=== PATIENT | male | born 1985 | race Caucasian/White ===

== ENCOUNTER 2017-08-29 06:28 | Inpatient (IN) | payer OTHER ==
[~2017-08-29] VITALS: Ht 188 cm; Wt 150.0 kg
[2017-08-29 06:29] VITALS: O2SAT 98
[2017-08-29 06:30] VITALS: O2SAT 100
[2017-08-29] MEDS ORDERED: DIPHTH/TETANUS/ACEL PERTUSSIS (BOOSTER) 0.5 ML VIAL/PFS IM ONE (06:33)
[2017-08-29] MEDS ORDERED: ceFAZolin 2 GM PREMIX 50 ML ONE (06:33)
[2017-08-29] MEDS ORDERED: HYDROmorphone HCL PF 2 MG/ML VIAL ONE ×7 (06:44→15:09)
[2017-08-29 07:00] LABS: AUTOMATED NEUTROPHIL # 17.2 TH/MM3 (1.8-7.7); BASOPHIL % 0.2 % (0.0-2.0); EOSINOPHIL # 0.2 TH/MM3 (0-0.4); EOSINOPHIL % 0.8 % (0.0-4.0); HEMATOCRIT 42.6 % (39.0-51.0); HEMOGLOBIN 13.9 GM/DL (13.0-17.0); LYMPH % 11.2 % (9.0-44.0); LYMPHOCYTE # 2.4 TH/MM3 (1.0-4.8); MEAN CELL VOLUME 81.2 FL (80.0-100.0); MEAN CORPUSCULAR HEMOGLOBIN 26.5 PG (27.0-34.0); MEAN CORPUSCULAR HGB CONC 32.6 % (32.0-36.0); MEAN PLATELET VOLUME 8.7 FL (7.0-11.0); MONO % 6.3 % (0.0-8.0); MONOCYTE # 1.3 TH/MM3 (0-0.9); NEUT % 81.5 % (16.0-70.0); PLATELET COUNT 310 TH/MM3 (150-450); RED BLOOD COUNT 5.25 MIL/MM3 (4.50-5.90); RED CELL DISTRIBUTION WIDTH 13.7 % (11.6-17.2); WHITE BLOOD COUNT 21.2 TH/MM3 (4.0-11.0)
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
[2017-08-29 07:10] LABS: PROTHROMBIN TIME - PATIENT 10.6 SEC (9.8-11.6)
[2017-08-29 07:15] VITALS: BP 145/97; PULSE 100; RESP 20; O2SAT 98
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
[2017-08-29] MEDS ORDERED: IOHEXOL 350 MG/ML 10 ML VIAL (for RAD DIAG) IVCONTRAST ONE (07:21)
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
[2017-08-29] MEDS ORDERED: PROPOFOL 200 MG/20 ML AMP IV ONE (07:45)
[2017-08-29] MEDS ORDERED: fentaNYL CITRATE 250 MCG/5 ML AMP IV PUSH ONE (08:00)
[2017-08-29] MEDS ORDERED: NALOXONE HCL 0.4 MG/ML AMP IV PUSH PRN ×2 (08:30→20:15)
[2017-08-29] MEDS ORDERED: ONDANSETRON HCL 4 MG/2 ML VIAL IV PUSH PRN (08:30)
[2017-08-29] MEDS ORDERED: HYDROmorphone HCL PF 1 MG/ML VIAL IV PUSH ONE ×2 (08:30→09:30)
[2017-08-29] MEDS ORDERED: CHLORHEXIDINE GLUCONATE 2 % 1 PACK (2 CLOTHS) TOP PRN (08:30)
[2017-08-29] MEDS ORDERED: HYDROmorphone HCL PCA 6 MG/30 ML IV SCH (08:30)
[2017-08-29] MEDS ORDERED: PCA - TOTAL MG DILAUDID DELIVERED PER SHIFT OTHER SCH (08:30)
[2017-08-29] MEDS ORDERED: MISCELLANEOUS NURSING INFORMATION XX SCH (08:30)
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
[2017-08-29 09:06] VITALS: BP 138/63; PULSE 105; RESP 22; O2SAT 96
[2017-08-29] MEDS: ACETAMINOPHEN 1000 MG/100 ML 100 ML IV SCH ×2 (11:30→20:21)
[2017-08-29] MEDS ORDERED: SODIUM CHLORID 0.9% 500 ML IV PRN (11:45)
[2017-08-29] MEDS ORDERED: LACTATED RINGER'S 1000 ML IV PRN (11:45)
[2017-08-29] MEDS ORDERED: POVIDONE IODINE 5% (ANTISEPSIS KIT) 4 APPLICATIONS EACH NARE PRN (11:45)
[2017-08-29] MEDS ORDERED: METOPROLOL TARTRATE 25 MG TAB PO PRN (11:45)
[2017-08-29] MEDS ORDERED: CHLORHEXIDINE GLUCONATE 2 % 1 PACK (2 CLOTHS) TOPICAL PRN (11:45)
[2017-08-29] MEDS: cefTRIAXone INJ 2,000 MG in SODIUM CHLORIDE 0.9% INJ 100 ML IV SCH ×2 (11:46→20:16)
[2017-08-29] MEDS ORDERED: PHENYLEPH/NS 1000 MCG/10 ML SYR IV ONE (12:00)
[2017-08-29] MEDS ORDERED: SUCCINYLCHOLINE CHLORIDE 100 MG/5 ML SYRINGE IV PUSH ONE (12:00)
[2017-08-29] MEDS ORDERED: GLYCOPYRROLATE 1 MG/5 ML SYRINGE IV PUSH ONE (12:00)
[2017-08-29] MEDS ORDERED: LACTATED RINGER'S 1000 ML INJ 1,000 ML IV ONE (12:00)
[2017-08-29] MEDS ORDERED: ePHEDrine/NS 25 MG/5 ML SYRINGE IV ONE (12:00)
[2017-08-29] MEDS ORDERED: MAGNESIUM SULFATE 1 GM PREMIX 200 ML ONE (12:34)
[2017-08-29] MEDS ORDERED: HYDROmorphone HCL PF 2 MG/ML VIAL IV ONE (12:45)
[2017-08-29] MEDS ORDERED: KETAMINE HCL 500 MG/5 ML VIAL ONE (13:32)
[2017-08-29] MEDS ORDERED: LIDOCAINE HCL 2% 20 ML VIAL ONE (13:33)
[2017-08-29] MEDS ORDERED: HYDROmorphone HCL PF 2 MG/ML VIAL IV PUSH ONE (13:45)
[2017-08-29] MEDS ORDERED: DEXMEDETOMIDINE HCL 200 MCG/2 ML VIAL ONE (13:45)
[2017-08-29] MEDS ORDERED: WHEEMIS3 (13:57)
[2017-08-29] MEDS ORDERED: HYDR-3583 PO (13:57)
[2017-08-29] MEDS ORDERED: WALKER WHEELS/F1 MIS (13:57)
[2017-08-29] MEDS ORDERED: XARE10TA PO (13:57)
[2017-08-29] MEDS ORDERED: MORPHINE SULFATE 2 MG/ML INJ ONE (14:06)
[2017-08-29] MEDS ORDERED: MORPHINE SULFATE 8 MG/ML INJ ONE (14:07)
[2017-08-29] MEDS ORDERED: MORPHINE SULFATE 2 MG/ML INJ IV ONE (14:30)
[2017-08-29] MEDS ORDERED: MORPHINE SULFATE 8 MG/ML INJ IV PUSH ONE (14:30)
[2017-08-29] MEDS: GENTAMICIN SULFATE 80 MG/2 ML VIAL ONE ×4 (15:01→15:10)
[2017-08-29] MEDS ORDERED: ceFAZolin INJ 1,000 MG VIAL ONE (15:04)
[2017-08-29] MEDS ORDERED: fentaNYL CITRATE 250 MCG/5 ML AMP ONE (15:09)
[2017-08-29] MEDS ORDERED: MIDAZOLAM HCL 2 MG/2 ML VIAL ONE (15:12)
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
[2017-08-29] MEDS: LACTATED RINGER'S 1000 ML INJ 1,000 ML IV SCH (16:19)
--- NOTE | 2017-08-29 16:27 | PD.OP ---
cc: Cyrus Wise MD Operative Report Date of Surgery: Aug 29, 2017 Preoperative Diagnosis: Open left tibia fracture, closed left femur fracture Postoperative Diagnosis: Procedure: Irrigation and debridement of open left tibia fracture, intramedullary nail fixation left tibia fracture, reduction and intramedullary nail fixation left femur fracture Anesthesia: Gen. Surgeon: Cyrus Wise Design Release Engineer(s): JAN Walker PA-C The surgical procedure was assisted by my physician virtual office assistant. My P.A. presence was necessary throughout this case for the manipulation and positioning of the surgical extremity. My P.A. was assisting me throughout the duration of this procedure. The skill set of a physician virtual office assistant was medically necessary to complete this procedure. During the surgical case the surgical garment inspector was working at the back table and the physician virtual office assistant was directly assisting me. Operation and Findings: Implants: ITS tibial nail, Synthes retrograde femoral nail Plan of activity: Toe-touch weightbearing Patient was seen and examined preoperatively. An informed consent was obtained from patient after detailed discussion of risk and benefits. Risks of surgery include bleeding, infection, painful hardware, nonunion, malunion, leg length discrepancy, need for hardware removal, and medical complications associated with anesthesia including blood clots, stroke, heart attack, and were discussed. Operative site was marked. Patient was brought to the operating room placed on or table. Patient received IV antibiotics and was given IV sedation GETA. Operative leg was prepped with alcohol Hibiclens and draped in usual sterile fashion. Timeout procedure was performed Procedure began with irrigation and debridement of open fracture. The traumatic laceration was extended proximally and distally. The fracture site was visualized. Overall the wound appeared to be clean. An excisional debridement was performed with scalpel, rongeur, and curettes. The into the bone were cleaned with curettes. At this point the wound was thoroughly irrigated with sterile saline. Next attention was turned towards reduction of fracture.. 2 small incisions were made around the fracture site. A pointed fracture clamp was placed around the fracture. Traction was applied. Fracture was reduced. There was comminution of the fracture. The fracture reduced and excellent alignment was achieved. Fracture clamp was used to aid in reduction. Next a 3 cm incision was made proximal to the patella. Quadriceps tendon was split in line with fibers. Cannulas were placed in the patellofemoral joint to protect the articular surface at all times. A guidepin was placed into the tibia and advanced in the tibial canal. Fluoroscopy was used to confirm appropriate guidepin placement. An opening reamer was used to open the tibial canal. A ball-tipped guidewire was advanced down the tibial canal. Guidepin was passed across the fracture site into the center of the distal tibia. Fluoroscopy confirmed guidepin placement. The nail length was now measured. The fracture was now held in a reduced position and the canal was reamed. The canal was reamed up to appropriate size. The tibial nail was now selected and then attached to the insertion handle. The nail was now placed over the guidepin. Next the nail was fully seated. Using perfect iliamna technique 2 distal interlocking screws were placed. Using the insertion handle as a guide 2 proximal interlocking screws were placed. Fluoroscopy confirmed excellent of fracture with well-placed hardware. Incisions and the knee joint were thoroughly irrigated with sterile saline. Fascia was closed with #1 PDS, subcutaneous tissues closed with 3-0 PDS and skin was closed with 3-0 nylon and ahsan. Next attention was turned towards the left femur. Procedure began with reduction of fracture. Traction was applied. The leg was manipulated to achieve reduction. Excellent reduction was achieved. Fluoroscopy was used to confirm reduction. A two inch incision was made over the anterior knee. A medial arthrotomy was created. Guidepin was placed into the distal femur and advanced into the femoral canal. Fluoroscopy confirmed appropriate guidepin placement. A opening reamer was placed over the guidepin. A long ball tipped guide pin was now placed down the femoral canal into the center of the proximal femur. The nail length was now measured. Fluoroscopy confirmed appropriate guidepin placement. Flexible reamers were now passed over the guidepin to ream the intramedullary canal. The Synthes 12 mm x 375 mm nail was attached to the insertion handle. Nail was now placed over the guidepin into the femoral canal. Fluoroscopy confirmed appropriate nail placement. A small percutaneous incisions were made over the lateral thigh. Cannulas were placed through the insertion handle down to the femur. Using the insertion handle as a guide the distal interlocking screw holes were predrilled and screw lengths were measured. Appropriate length screws was now placed. Next, using perfect iliamna technique two proximal interlocking screws were placed. Screw holes were predrilled and screw lengths were measured. Final fluoroscopy revealed well aligned fracture with well- placed hardware. Incision was closed with 0 Vicryl, 3-0 Vicryl and ahsan. Sterile dressings were applied. Patient was awakened and transferred to recovery room. Cyrus Wise MD Aug 29, 2017 16:27
[2017-08-29] MEDS ORDERED: diphenhydrAMINE HCL 25 MG CAP PO PRN (16:30)
[2017-08-29] MEDS ORDERED: HYDROmorphone HCL PF 2 MG/ML VIAL IV PUSH PRN (16:30)
[2017-08-29] MEDS ORDERED: DO NOT ADM ANY ANTICOAGULANT DRUGS PRN (16:57)
[2017-08-29] MEDS ORDERED: ERGOCALCIFEROL (VIT D2) 50,000 UNIT CAP PO SCH (17:00)
[2017-08-29] MEDS ORDERED: *morphine SULFATE 8 MG/ML PERIprocedure ONLY ONE (17:10)
[2017-08-29] MEDS ORDERED: *LABETALOL HCL 100 MG/20 ML VIAL PERIprocedural Use ONLY ONE (17:17)
--- NOTE | 2017-08-29 17:39 | RADRPT ---
EXAM DATE/TIME: 08/29/2017 15:41 [facility] COMPARISON: No previous studies available for comparison. INDICATIONS : Surgical repair, IM jake placement. MEDICAL HISTORY : None. SURGICAL HISTORY : None. ENCOUNTER: Initial ACUITY: 1 day PAIN SCORE: Non-responsive. LOCATION: Left femur. FINDINGS: There is jake fixation across a comminuted fracture of the tibial shaft. Anatomic alignment. CONCLUSION: 1. Jake fixation of tibial fracture. Niles Prado MD on August 29, 2017 at 17:37 Board Certified Radiologist. This report was verified electronically.
--- NOTE | 2017-08-29 17:39 | RADRPT ---
EXAM DATE/TIME: 08/29/2017 15:41 [facility] COMPARISON: No previous studies available for comparison. INDICATIONS : Surgical repair, IM jake placement. MEDICAL HISTORY : None. SURGICAL HISTORY : None. ENCOUNTER: Initial ACUITY: 1 day PAIN SCORE: Non-responsive. LOCATION: Left femur. FINDINGS: Two view examination of the left femur demonstrates jake fixation of the left femur. Near-anatomic ali gnment. CONCLUSION: 1. Jake fixation left femur. Niles Prado MD on August 29, 2017 at 17:35 Board Certified Radiologist. This report was verified electronically.
[2017-08-29] MEDS: CALCIUM/VITAMIN D 250 MG/125 U TAB PO SCH (18:15)
[2017-08-29] MEDS: ACETAMINOPHEN/HYDROcodone 325 MG/10 MG TAB PO PRN ×2 (18:16→21:50)
[2017-08-29 18:25] VITALS: BP 133/70; PULSE 115; RESP 17; TEMP 97.3; O2SAT 95
[2017-08-29] MEDS: KETOROLAC TROMETHAMINE 30 MG/ML (IVP) VIAL IVP SCH (20:14)
[2017-08-29] MEDS: DOCUSATE SODIUM 50 MG/SENNA 8.6 MG TAB PO SCH (20:22)
[2017-08-29] MEDS: MAGNESIUM HYDROXIDE SUSP 30 ML CUP PO SCH (20:25)
[2017-08-29] MEDS: FAMOTIDINE 20 MG TAB PO SCH (20:25)
[2017-08-29] MEDS: ceFAZolin 2 GM PREMIX 50 ML IV SCH (20:26)
[2017-08-29] MEDS: HYDROmorphone HCL PCA 6 MG/30 ML IV SCH ×2 (20:32→23:26)
[2017-08-29] MEDS: PCA - TOTAL MG DILAUDID DELIVERED PER SHIFT SCH (20:32)
[2017-08-29] MEDS: GENTAMICIN INJ 80 MG in SODIUM CHLORIDE 0.9% INJ 100 ML IV SCH (23:20)
[2017-08-30] VITALS (7 sets, daily range): BP systolic 116–138; BP diastolic 56–71; PULSE 102–121; RESP 17–20; TEMP 97.2–100.5; O2SAT 91–97
[2017-08-30] MEDS: LACTATED RINGER'S 1000 ML INJ 1,000 ML IV SCH ×5 (00:37→22:19)
[2017-08-30] MEDS: ACETAMINOPHEN/HYDROcodone 325 MG/10 MG TAB PO PRN ×3 (01:37→08:57)
[2017-08-30] MEDS: HYDROmorphone HCL PCA 6 MG/30 ML IV SCH ×2 (02:22→07:27)
[2017-08-30] MEDS: ceFAZolin 2 GM PREMIX 50 ML IV SCH (04:45)
[2017-08-30] MEDS: KETOROLAC TROMETHAMINE 30 MG/ML (IVP) VIAL IVP SCH ×2 (04:46→14:51)
[2017-08-30] MEDS: CHLORHEXIDINE GLUCONATE 2 % 1 PACK (2 CLOTHS) TOP SCH (04:57)
[2017-08-30] MEDS: ACETAMINOPHEN 1000 MG/100 ML 100 ML IV SCH (05:04)
[2017-08-30] MEDS: PCA - TOTAL MG DILAUDID DELIVERED PER SHIFT SCH ×3 (06:21→21:29)
[2017-08-30 06:55] LABS: AUTOMATED NEUTROPHIL # 4.9 TH/MM3 (1.8-7.7); BASOPHIL % 0.6 % (0.0-2.0); EOSINOPHIL # 0.2 TH/MM3 (0-0.4); EOSINOPHIL % 2.7 % (0.0-4.0); HEMATOCRIT 27.6 % (39.0-51.0); HEMOGLOBIN 9.3 GM/DL (13.0-17.0); LYMPH % 16.1 % (9.0-44.0); LYMPHOCYTE # 1.1 TH/MM3 (1.0-4.8); MEAN CELL VOLUME 81.2 FL (80.0-100.0); MEAN CORPUSCULAR HEMOGLOBIN 27.4 PG (27.0-34.0); MEAN CORPUSCULAR HGB CONC 33.7 % (32.0-36.0); MEAN PLATELET VOLUME 8.8 FL (7.0-11.0); MONO % 6.9 % (0.0-8.0); MONOCYTE # 0.5 TH/MM3 (0-0.9); NEUT % 73.7 % (16.0-70.0); PLATELET COUNT 117 TH/MM3 (150-450); RED CELL DISTRIBUTION WIDTH 14.1 % (11.6-17.2); WHITE BLOOD COUNT 6.6 TH/MM3 (4.0-11.0)
[2017-08-30 07:17] LABS: CALCIUM 7.3 MG/DL (8.5-10.1); CREATININE 1.39 MG/DL (0.60-1.30)
[2017-08-30 07:32] LABS: CALCIUM-PROTEIN CORRECTED 8.2 MG/DL (8.5-10.1); TOTAL PROTEIN 5.5 GM/DL (6.4-8.2)
[2017-08-30] MEDS: GENTAMICIN INJ 80 MG in SODIUM CHLORIDE 0.9% INJ 100 ML IV SCH ×3 (08:00→23:24)
[2017-08-30] MEDS ORDERED: MS C30TA5 (08:56)
[2017-08-30] MEDS ORDERED: OXYC30TA PO (08:56)
[2017-08-30] MEDS: MAGNESIUM HYDROXIDE SUSP 30 ML CUP PO SCH ×2 (08:58→21:17)
[2017-08-30] MEDS: FAMOTIDINE 20 MG TAB PO SCH ×2 (08:58→21:00)
[2017-08-30] MEDS: CALCIUM/VITAMIN D 250 MG/125 U TAB PO SCH ×3 (08:58→17:04)
[2017-08-30] MEDS: DOCUSATE SODIUM 50 MG/SENNA 8.6 MG TAB PO SCH ×4 (08:58→21:00)
--- NOTE | 2017-08-30 09:05 | PD.ORT.PN ---
Subjective Subjective Remarks pt complains of left leg pain servin had to be inserted last evening Objective Vitals Vital Signs Date Time Temp Pulse Resp B/P (MAP) Pulse Ox O2 Delivery O2 Flow Rate FiO2 08/30/17 07:27 16 08/30/17 06:21 17 08/30/17 05:35 93 Nasal Cannula 08/30/17 03:55 99.0 118 18 124/64 (84) 93 08/30/17 02:22 17 08/30/17 00:00 100.5 121 17 138/71 (93) 93 08/29/17 23:26 16 08/29/17 20:32 16 08/29/17 20:32 16 08/29/17 18:25 97.3 115 17 133/70 (91) 95 08/29/17 18:12 12 08/29/17 17:45 114 19 119/77 (91) 94 Nasal Cannula 4 08/29/17 17:30 114 20 112/62 (79) 86 Venturi Mask 6 40 08/29/17 17:15 128 30 118/54 (75) 86 Venturi Mask 6 40 08/29/17 17:00 127 25 177/56 (96) 92 Nasal Cannula 4 08/29/17 16:57 99.7 127 25 133/82 (99) 94 Simple Mask 8 08/29/17 10:33 25 08/29/17 10:33 25 08/29/17 09:06 105 22 138/63 (88) 96 Nasal Cannula 2.00 I/O 08/29/17 08/29/17 08/29/17 08/30/17 08/30/17 08/30/17 07:00 15:00 23:00 07:00 15:00 23:00 Intake Total 1800 ml 1772 ml Output Total 75 ml 1050 ml Balance 1725 ml 722 ml Intake Oral 640 ml IV Total 150 ml 1132 ml Other 1650 ml Output Urine Total 1050 ml Estimated Blood Loss 75 ml # Bowel Movements 0 Result Diagram: 08/30/17 0536 08/30/17 0536 Objective Remarks pt is in room with mother seen and evaluated by Dr. Bright Morley left lower extremity, sensation intact splint in place Assessment & Plan Assessment and Plan POD # 1 s/p I&D open L tibia, IM tibia, IM nail femur TTWB leave servin in place until late tomorrow (08/31) or early friday TTWB Lovenox DVT prop Consult hospitalist Britt Leung Aug 30, 2017 09:05
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
[2017-08-30] MEDS ORDERED: cloNIDine HCL 0.1 MG TAB PO PRN (10:45)
[2017-08-30] MEDS: MORPHINE SULFATE 30 MG CONTROLLED RELEASE TAB PO SCH ×2 (10:45→21:20)
[2017-08-30] MEDS: ENOXAPARIN SODIUM 40 MG/0.4 ML SYRINGE SQ SCH (17:04)
[2017-08-31] VITALS (8 sets, daily range): BP systolic 110–147; BP diastolic 55–85; PULSE 100–124; RESP 19–23; TEMP 96.7–100.2; O2SAT 70–93
[2017-08-31] MEDS: LACTATED RINGER'S 1000 ML INJ 1,000 ML IV SCH ×3 (00:26→18:19)
[2017-08-31] MEDS: CHLORHEXIDINE GLUCONATE 2 % 1 PACK (2 CLOTHS) TOP SCH (02:00)
[2017-08-31] MEDS: ENOXAPARIN SODIUM 40 MG/0.4 ML SYRINGE SQ SCH ×2 (04:00→16:00)
[2017-08-31] MEDS: PCA - TOTAL MG DILAUDID DELIVERED PER SHIFT SCH ×3 (04:17→22:00)
[2017-08-31 07:31] LABS: ALBUMIN 2.6 GM/DL (3.4-5.0); AST (GOT) 54 U/L (15-37); BICARBONATE 26.9 MEQ/L (21.0-32.0); BLOOD UREA NITROGEN 15 MG/DL (7-18); CHLORIDE 102 MEQ/L (98-107); CREATININE 1.12 MG/DL (0.60-1.30); GLOMERULAR FILTRATION RATE 77 ML/MIN (>89); GLUCOSE,RANDOM 133 MG/DL (74-106); MAGNESIUM 2.3 MG/DL (1.5-2.5); SODIUM (NA) 138 MEQ/L (136-145)
[2017-08-31 07:33] LABS: ALT (GPT) 18 U/L (12-78); PHOSPHORUS 2.2 MG/DL (2.5-4.9)
[2017-08-31 07:36] LABS: AUTOMATED NEUTROPHIL # 4.3 TH/MM3 (1.8-7.7); BASOPHIL # 0.1 TH/MM3 (0-0.2); BASOPHIL % 0.8 % (0.0-2.0); EOSINOPHIL # 0.4 TH/MM3 (0-0.4); EOSINOPHIL % 6.5 % (0.0-4.0); HEMOGLOBIN 8.2 GM/DL (13.0-17.0); LYMPH % 15.5 % (9.0-44.0); LYMPHOCYTE # 0.9 TH/MM3 (1.0-4.8); MEAN CELL VOLUME 80.7 FL (80.0-100.0); MEAN CORPUSCULAR HEMOGLOBIN 27.4 PG (27.0-34.0); MEAN PLATELET VOLUME 9.2 FL (7.0-11.0); MONO % 5.9 % (0.0-8.0); MONOCYTE # 0.4 TH/MM3 (0-0.9); NEUT % 71.3 % (16.0-70.0); PLATELET COUNT 87 TH/MM3 (150-450); RED BLOOD COUNT 2.98 MIL/MM3 (4.50-5.90); RED CELL DISTRIBUTION WIDTH 13.6 % (11.6-17.2); WHITE BLOOD COUNT 6.1 TH/MM3 (4.0-11.0)
[2017-08-31 07:41] LABS: ALKALINE PHOSPHATASE 65 U/L (45-117); FREE T4 1.48 NG/DL (0.76-1.46); TOTAL BILIRUBIN ADULT 0.6 MG/DL (0.2-1.0)
--- NOTE | 2017-08-31 08:28 | PD.ORT.PN ---
Subjective Subjective Remarks pt states he is very painful, was on chronic pain meds pre-op Objective Vitals Vital Signs Date Time Temp Pulse Resp B/P (MAP) Pulse Ox O2 Delivery O2 Flow Rate FiO2 08/31/17 06:32 19 08/31/17 04:10 96.8 123 22 110/55 (73) 91 08/31/17 00:15 99.4 124 21 118/61 (80) 91 08/30/17 22:25 Nasal Cannula 4.00 Humidified 08/30/17 22:20 17 08/30/17 20:05 100.3 120 20 134/61 (85) 97 08/30/17 16:00 97.2 115 17 118/56 (76) 95 08/30/17 12:00 97.7 102 17 116/56 (76) 91 I/O 08/30/17 08/30/17 08/30/17 08/31/17 08/31/17 08/31/17 07:00 15:00 23:00 07:00 15:00 23:00 Intake Total 1772 ml 480 ml 1100 ml 442 ml Output Total 1050 ml 450 ml 2050 ml Balance 722 ml 30 ml 1100 ml -1608 ml Intake Oral 640 ml 480 ml 240 ml IV Total 1132 ml 1100 ml 202 ml Output Urine Total 1050 ml 450 ml 2050 ml # Bowel Movements 0 0 0 Result Diagram: 08/31/17 0645 08/31/17 0645 Objective Remarks also seen and evaluated by Dr. Bright Morley left lower extremity, sensation intact splint in place Assessment & Plan Assessment and Plan POD # 2 s/p I&D open L tibia, IM tibia, IM nail femur TTWB leave servin in place until late today (08/31) or early friday TTWB Lovenox DVT prop hospitalist was consulted 08/30 due to pain control issues Britt Leung Aug 31, 2017 08:28
[2017-08-31] MEDS: DOCUSATE SODIUM 50 MG/SENNA 8.6 MG TAB PO SCH ×3 (09:00→22:18)
[2017-08-31] MEDS: CALCIUM/VITAMIN D 250 MG/125 U TAB PO SCH ×3 (09:37→17:30)
[2017-08-31] MEDS: GENTAMICIN INJ 80 MG in SODIUM CHLORIDE 0.9% INJ 100 ML IV SCH ×2 (09:37→16:00)
[2017-08-31] MEDS: MORPHINE SULFATE 30 MG CONTROLLED RELEASE TAB PO SCH ×2 (09:37→22:17)
[2017-08-31] MEDS: MAGNESIUM HYDROXIDE SUSP 30 ML CUP PO SCH ×2 (09:37→22:17)
[2017-08-31] MEDS: FAMOTIDINE 20 MG TAB PO SCH ×2 (09:37→22:17)
[2017-08-31 10:00] LABS: HEMOGLOBIN A1C 5.7 % (4.3-6.0)
[2017-08-31] MEDS ORDERED: BACITRACIN OINT 0.9 GM PKT TOP PRN (11:30)
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
[2017-08-31] MEDS ORDERED: IOHEXOL 350 MG/ML 10 ML VIAL (for RAD DIAG) IVCONTRAST ONE (12:37)
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
[2017-09-01] VITALS (8 sets, daily range): BP systolic 122–150; BP diastolic 58–84; PULSE 71–118; RESP 18–21; TEMP 97.4–100.1; O2SAT 90–100
[2017-09-01] MEDS: CHLORHEXIDINE GLUCONATE 2 % 1 PACK (2 CLOTHS) TOP SCH (04:00)
[2017-09-01] MEDS: LACTATED RINGER'S 1000 ML INJ 1,000 ML IV SCH ×2 (04:12→14:19)
[2017-09-01] MEDS: ENOXAPARIN SODIUM 40 MG/0.4 ML SYRINGE SQ SCH ×2 (05:00→17:28)
[2017-09-01] MEDS: PCA - TOTAL MG DILAUDID DELIVERED PER SHIFT SCH ×3 (06:00→20:49)
--- NOTE | 2017-09-01 06:39 | PD.ORT.PN ---
Subjective Subjective Remarks Pain is controlled but is complaining of pain in his right knee this morning. Objective Vitals Vital Signs Date Time Temp Pulse Resp B/P (MAP) Pulse Ox O2 Delivery O2 Flow Rate FiO2 09/01/17 04:30 97.4 112 21 134/81 (98) 93 09/01/17 00:20 99.7 118 20 122/58 (79) 93 08/31/17 23:31 18 08/31/17 20:00 96.7 119 19 130/71 (90) 92 08/31/17 19:35 19 08/31/17 17:32 92 Nasal Cannula 5.00 08/31/17 16:00 97.2 123 22 147/85 (105) 81 08/31/17 12:00 100.2 117 23 137/68 (91) 92 08/31/17 09:38 93 Nasal Cannula 5.00 08/31/17 08:00 97.9 100 23 138/63 (88) 70 I/O 08/31/17 08/31/17 08/31/17 09/01/17 09/01/17 09/01/17 07:00 15:00 23:00 07:00 15:00 23:00 Intake Total 442 ml 720 ml 240 ml Output Total 2050 ml 2600 ml 1250 ml Balance -1608 ml -1880 ml -1010 ml Intake Oral 240 ml 720 ml 240 ml IV Total 202 ml Output Urine Total 2050 ml 2600 ml 1250 ml # Bowel Movements 0 0 Result Diagram: 08/31/17 0645 08/31/17 0645 Objective Remarks Left lower extremity: Clean dry dressings intact. Both upper and lower compartments are semi-soft. Distally intact sensation with good capillary refills. Active dorsal flexion plantar flexion of foot. Intact distal pulses and capillary refills Assessment & Plan Assessment and Plan POD # 3 s/p I&D open L tibia, IM tibia, IM nail femur TTWB X-rays today of right knee for evaluation of pain Lovenox DVT prop Daily dressing changes If x-rays are negative of right knee injury and is doing well with physical therapy will plan on discharged today or tomorrow depending on patient's safety follow-up with Dr. Wise or MELVI in 2 weeks Jay Wen Jr. Sep 01, 2017 06:39
[2017-09-01] MEDS: DOCUSATE SODIUM 50 MG/SENNA 8.6 MG TAB PO SCH ×2 (08:43→20:52)
[2017-09-01] MEDS: CALCIUM/VITAMIN D 250 MG/125 U TAB PO SCH ×3 (08:43→17:28)
[2017-09-01] MEDS: MAGNESIUM HYDROXIDE SUSP 30 ML CUP PO SCH ×2 (08:44→20:52)
[2017-09-01] MEDS: MORPHINE SULFATE 30 MG CONTROLLED RELEASE TAB PO SCH ×2 (08:44→20:53)
[2017-09-01] MEDS: FAMOTIDINE 20 MG TAB PO SCH ×2 (08:44→20:52)
--- NOTE | 2017-09-01 10:09 | RADRPT ---
EXAM DATE/TIME: 09/01/2017 09:42 [facility] COMPARISON: No previous studies available for comparison. INDICATIONS : Right knee pain, fell. MEDICAL HISTORY : left femur fx SURGICAL HISTORY : Neuro hx ENCOUNTER: Initial ACUITY: 3 days PAIN SCORE: 10/10 LOCATION: Right knee FINDINGS: Four view examination of the right knee demonstrates no evidence of fracture or dislocation. Bony mi neralization is normal. The articular surfaces are intact. The suprapatellar soft tissues have a no rmal configuration. CONCLUSION: 1. No acute fracture or dislocation. Obinna Villaseñor MD on September 01, 2017 at 9:58 Board Certified Radiologist. This report was verified electronically.
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
[2017-09-01 16:24] LABS: AUTOMATED NEUTROPHIL # 5.9 TH/MM3 (1.8-7.7); BASOPHIL # 0.1 TH/MM3 (0-0.2); BASOPHIL % 0.9 % (0.0-2.0); EOSINOPHIL # 0.5 TH/MM3 (0-0.4); EOSINOPHIL % 5.7 % (0.0-4.0); HEMATOCRIT 25.4 % (39.0-51.0); HEMOGLOBIN 8.4 GM/DL (13.0-17.0); LYMPH % 14.6 % (9.0-44.0); LYMPHOCYTE # 1.2 TH/MM3 (1.0-4.8); MEAN CELL VOLUME 80.9 FL (80.0-100.0); MEAN CORPUSCULAR HEMOGLOBIN 26.9 PG (27.0-34.0); MEAN CORPUSCULAR HGB CONC 33.3 % (32.0-36.0); MEAN PLATELET VOLUME 9.1 FL (7.0-11.0); MONO % 7.5 % (0.0-8.0); MONOCYTE # 0.6 TH/MM3 (0-0.9); NEUT % 71.3 % (16.0-70.0); PLATELET COUNT 154 TH/MM3 (150-450); RED BLOOD COUNT 3.14 MIL/MM3 (4.50-5.90); RED CELL DISTRIBUTION WIDTH 14.4 % (11.6-17.2); WHITE BLOOD COUNT 8.3 TH/MM3 (4.0-11.0)
[2017-09-01 16:54] LABS: ALBUMIN 2.8 GM/DL (3.4-5.0); AST (GOT) 43 U/L (15-37); BICARBONATE 28.9 MEQ/L (21.0-32.0); BLOOD UREA NITROGEN 12 MG/DL (7-18); CALCIUM 8.4 MG/DL (8.5-10.1); CHLORIDE 101 MEQ/L (98-107); CREATININE 0.99 MG/DL (0.60-1.30); GLOMERULAR FILTRATION RATE 89 ML/MIN (>89); GLUCOSE,RANDOM 125 MG/DL (74-106); MAGNESIUM 2.4 MG/DL (1.5-2.5); SODIUM (NA) 137 MEQ/L (136-145)
[2017-09-01 16:58] LABS: ALKALINE PHOSPHATASE 64 U/L (45-117); ALT (GPT) 16 U/L (12-78); PHOSPHORUS 2.3 MG/DL (2.5-4.9); TOTAL BILIRUBIN ADULT 0.8 MG/DL (0.2-1.0); TOTAL PROTEIN 7.3 GM/DL (6.4-8.2)
[2017-09-01] MEDS: LEVOFLOXACIN 750 MG TAB PO SCH (17:34)
[2017-09-02] VITALS (10 sets, daily range): BP systolic 127–159; BP diastolic 63–89; PULSE 96–107; RESP 18–20; TEMP 96.8–100.1; O2SAT 93–99
[2017-09-02] MEDS: LACTATED RINGER'S 1000 ML INJ 1,000 ML IV SCH ×3 (00:19→20:19)
[2017-09-02] MEDS: CHLORHEXIDINE GLUCONATE 2 % 1 PACK (2 CLOTHS) TOP SCH (03:28)
[2017-09-02] MEDS: ENOXAPARIN SODIUM 40 MG/0.4 ML SYRINGE SQ SCH ×2 (03:55→16:42)
[2017-09-02] MEDS: PCA - TOTAL MG DILAUDID DELIVERED PER SHIFT SCH ×3 (05:23→21:58)
[2017-09-02 06:11] LABS: MEAN CELL VOLUME 81.3 FL (80.0-100.0); MEAN CORPUSCULAR HEMOGLOBIN 27.1 PG (27.0-34.0); MEAN CORPUSCULAR HGB CONC 33.3 % (32.0-36.0); MEAN PLATELET VOLUME 9.3 FL (7.0-11.0); PLATELET COUNT 147 TH/MM3 (150-450); RED BLOOD COUNT 2.57 MIL/MM3 (4.50-5.90)
[2017-09-02 06:20] LABS: BICARBONATE 26.5 MEQ/L (21.0-32.0); CALCIUM 8.4 MG/DL (8.5-10.1); CREATININE 0.85 MG/DL (0.60-1.30)
[2017-09-02 06:22] LABS: HEMATOCRIT 20.9 % (39.0-51.0)
--- NOTE | 2017-09-02 06:42 | PD.ORT.PN ---
Subjective Subjective Remarks Continue to have some difficulty with pain control due to chronic pain medication use. He was able to get on a walker make to the bathroom back yesterday. Pain in the right knee is continuing to improve. He continues to have some tenderness and pain with the right shoulder due to his acromial clavicular joint separation. Objective Vitals Vital Signs Date Time Temp Pulse Resp B/P (MAP) Pulse Ox O2 Delivery O2 Flow Rate FiO2 09/02/17 04:26 18 09/02/17 00:12 99.0 107 20 127/63 (84) 96 09/01/17 23:00 Nasal Cannula 4.00 Humidified 09/01/17 21:33 18 09/01/17 19:45 98.8 107 18 133/77 (95) 98 09/01/17 19:29 95 Nasal Cannula 4.00 09/01/17 16:00 99.0 110 18 133/84 (100) 100 09/01/17 11:48 97.4 100 18 141/79 (99) 99 09/01/17 08:12 94 Nasal Cannula 4.00 09/01/17 07:23 100.1 71 18 150/77 (101) 90 I/O 09/01/17 09/01/17 09/01/17 09/02/17 09/02/17 09/02/17 07:00 15:00 23:00 07:00 15:00 23:00 Intake Total 240 ml 720 ml Output Total 1250 ml 1400 ml Balance -1010 ml -680 ml Intake Oral 240 ml 720 ml Output Urine Total 1250 ml 1400 ml # Bowel Movements 0 0 Result Diagram: 09/02/17 0430 09/02/17 0430 Imaging Last 72 hours Impressions Knee X-Ray 09/01/17 0000 Signed Impressions: Service Date/Time: Friday, September 01, 2017 09:42 - CONCLUSION: 1. No acute fracture or dislocation. Obinna Villaseñor MD Lower Extremity Ultrasound 08/31/17 0000 Signed Impressions: Service Date/Time: Thursday, August 31, 2017 18:29 - CONCLUSION: Normal examination. Niles Prado MD CT Angiography 08/31/17 0000 Signed Impressions: Service Date/Time: Thursday, August 31, 2017 12:25 - CONCLUSION: 1. No pulmonary embolus identified. 2. Patchy airspace infiltrate bilaterally concerning for a pneumonia. Joel Davis MD Objective Remarks Left lower extremity: Clean dry dressings intact. Both upper and lower compartments are semi-soft. Distally intact sensation with good capillary refills. Active dorsal flexion plantar flexion of foot. Intact distal pulses and capillary refills Right upper extremity: Pain to palpation over chronic clavicular joint. He is able to fully left his arm to 160 or flexion and abduction. Distally intact sensation with full extension and flexion of all fingers Right lower extremity: No pain with hip range of motion. Continues to have some slight tenderness to his knee with range of motion. Distally intact sensation with good capillary refills. Active dorsiflexion and plantar flexion foot Assessment & Plan Assessment and Plan POD # 4 s/p I&D open L tibia, IM tibia, IM nail femur TTWB left lower extremity Lovenox DVT prop Daily dressing changes Right acromioclavicular joint separation Weightbearing as tolerated right upper extremity for short distances with walker Discharge to home if doing well with physical therapy Jay Wen Jr. Sep 02, 2017 06:42
--- NOTE | 2017-09-02 07:32 | RADRPT ---
EXAM DATE/TIME: 09/02/2017 05:17 [facility] COMPARISON: CHEST SINGLE AP, August 29, 2017, 6:35. INDICATIONS : Chest and back pain , evaluate for pneumonia MEDICAL HISTORY : None. SURGICAL HISTORY : fusion lower c-spine, t-spine fixation ENCOUNTER: Subsequent ACUITY: 4 - 6 days PAIN SCORE: 10/10 LOCATION: Bilateral chest FINDINGS: Scattered patchy infiltrates are noted bilaterally consistent with pneumonia or pulmonary vascular co ngestion. Clinical correlation is recommended. The heart is stable. Hardware is noted within the cerv ical spine and thoracolumbar spine consistent with previous fusions. CONCLUSION: Scattered patchy infiltrates bilaterally consistent with pneumonia or pulmonary vascular congestion. Clinical correlation is recommended. Marcin Ronquillo MD on September 02, 2017 at 7:29 Board Certified Radiologist. This report was verified electronically.
[2017-09-02] MEDS: MAGNESIUM HYDROXIDE SUSP 30 ML CUP PO SCH ×2 (10:10→21:54)
[2017-09-02] MEDS: FAMOTIDINE 20 MG TAB PO SCH ×2 (10:10→21:55)
[2017-09-02] MEDS: DOCUSATE SODIUM 50 MG/SENNA 8.6 MG TAB PO SCH ×2 (10:10→21:55)
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
[2017-09-02] MEDS: MORPHINE SULFATE 30 MG CONTROLLED RELEASE TAB PO SCH ×2 (10:11→21:55)
[2017-09-02] MEDS: LEVOFLOXACIN 750 MG TAB PO SCH (10:11)
[2017-09-02] MEDS: CALCIUM/VITAMIN D 250 MG/125 U TAB PO SCH ×3 (10:11→16:42)
[2017-09-02] MEDS ORDERED: RESP: ALBUTEROL 2.5 MG/IPRATROPIUM 0.5 MG NEB (PRN) NEB (10:45)
[2017-09-02] MEDS: RESP: ALBUTEROL 2.5 MG/IPRATROPIUM 0.5 MG NEB (SCH) NEB ×2 (14:15→19:01)
[2017-09-02 22:12] LABS: HEMATOCRIT 26.6 % (39.0-51.0); HEMOGLOBIN 8.8 GM/DL (13.0-17.0)
[2017-09-03] MEDS: CHLORHEXIDINE GLUCONATE 2 % 1 PACK (2 CLOTHS) TOP SCH (00:14)
[2017-09-03 00:30] VITALS: BP 122/77; PULSE 104; RESP 20; TEMP 99; O2SAT 93
[2017-09-03] MEDS: PCA - TOTAL MG DILAUDID DELIVERED PER SHIFT SCH (01:53)
[2017-09-03] MEDS: ENOXAPARIN SODIUM 40 MG/0.4 ML SYRINGE SQ SCH ×2 (03:47→14:53)
[2017-09-03] MEDS: LACTATED RINGER'S 1000 ML INJ 1,000 ML IV SCH (06:11)
--- NOTE | 2017-09-03 06:25 | PD.ORT.PN ---
Subjective Subjective Remarks Continue to have some difficulty with pain control due to chronic pain medication use. . Objective Vitals Vital Signs Date Time Temp Pulse Resp B/P (MAP) Pulse Ox O2 Delivery O2 Flow Rate FiO2 09/03/17 01:53 19 09/03/17 00:30 99.0 104 20 122/77 (92) 93 09/02/17 22:34 18 09/02/17 19:53 100.1 107 20 143/79 96 09/02/17 19:01 98 21 09/02/17 16:51 98.2 100 18 128/74 99 09/02/17 16:32 97.2 101 18 152/83 95 09/02/17 15:00 97.0 105 20 159/74 93 09/02/17 14:18 94 Nasal Cannula 4.00 09/02/17 12:36 96.8 96 18 149/89 97 09/02/17 12:12 98.0 103 18 143/81 97 09/02/17 07:45 98.5 100 18 134/74 (94) 94 I/O 09/02/17 09/02/17 09/02/17 09/03/17 09/03/17 09/03/17 07:00 15:00 23:00 07:00 15:00 23:00 Intake Total 960 ml 1715 ml 415 ml 960 ml Output Total 1500 ml 1300 ml 1700 ml Balance -540 ml 415 ml 415 ml -740 ml Intake Oral 960 ml 960 ml 960 ml Packed Cells 750 ml 400 ml Blood Product IV Normal Saline Flush 5 ml 15 ml Output Urine Total 1500 ml 1300 ml 1700 ml # Bowel Movements 0 0 0 Result Diagram: 09/02/17205409/02/17 0430 Imaging Last 72 hours Impressions Knee X-Ray 09/01/17 0000 Signed Impressions: Service Date/Time: Friday, September 01, 2017 09:42 - CONCLUSION: 1. No acute fracture or dislocation. Obinna Villaseñor MD Lower Extremity Ultrasound 08/31/17 0000 Signed Impressions: Service Date/Time: Thursday, August 31, 2017 18:29 - CONCLUSION: Normal examination. Niles Prado MD CT Angiography 08/31/17 0000 Signed Impressions: Service Date/Time: Thursday, August 31, 2017 12:25 - CONCLUSION: 1. No pulmonary embolus identified. 2. Patchy airspace infiltrate bilaterally concerning for a pneumonia. Joel Davis MD Objective Remarks Left lower extremity: Clean dry dressings intact. Both upper and lower compartments are semi-soft. Distally intact sensation with good capillary refills. Active dorsal flexion plantar flexion of foot. Intact distal pulses and capillary refills Right upper extremity: Pain to palpation over chronic clavicular joint. He is able to fully left his arm to 160 or flexion and abduction. Distally intact sensation with full extension and flexion of all fingers Right lower extremity: No pain with hip range of motion. Continues to have some slight tenderness to his knee with range of motion. Distally intact sensation with good capillary refills. Active dorsiflexion and plantar flexion foot Assessment & Plan Assessment and Plan POD # 5 s/p I&D open L tibia, IM tibia, IM nail femur TTWB left lower extremity Lovenox DVT prop Daily dressing changes Right acromioclavicular joint separation Weightbearing as tolerated right upper extremity for short distances with walker Discharge to home if doing well with physical therapy Jay Wen Jr. Sep 03, 2017 06:25
--- NOTE | 2017-09-03 06:28 | HHI.FF ---
Face to Face Verification Diagnosis: (1) Left femoral shaft fracture (2) Open left tibial fracture Physical Therapy Gait training Left LE Weight Bearing: Toe Touch WB Left LE Range of Motion: Active Assistive ROM Nursing Dressing Changes: Daily dressing change, Chin wrap, 4x4s, Xeroform I have seen patient Lm Aldridge on 09/03/17. My clinical findings support the need for the requested home health care services because: Limited ability to care for self I certify that my clinical findings support that this patient is homebound because: Post-op weakness Jay Wen Jr. Sep 03, 2017 06:28
[2017-09-03 08:00] VITALS: BP 135/74; PULSE 111; RESP 17; TEMP 99.6; O2SAT 93
[2017-09-03] MEDS: RESP: ALBUTEROL 2.5 MG/IPRATROPIUM 0.5 MG NEB (SCH) NEB ×2 (08:00→16:35)
[2017-09-03] MEDS: MAGNESIUM HYDROXIDE SUSP 30 ML CUP PO SCH (09:00)
[2017-09-03] MEDS: FAMOTIDINE 20 MG TAB PO SCH (09:06)
[2017-09-03] MEDS: LEVOFLOXACIN 750 MG TAB PO SCH (09:06)
[2017-09-03] MEDS: MORPHINE SULFATE 30 MG CONTROLLED RELEASE TAB PO SCH (09:07)
[2017-09-03] MEDS: DOCUSATE SODIUM 50 MG/SENNA 8.6 MG TAB PO SCH (09:07)
[2017-09-03] MEDS: CALCIUM/VITAMIN D 250 MG/125 U TAB PO SCH ×2 (09:08→13:00)
[2017-09-03] MEDS ORDERED: MAGNESIUM HYDROXIDE SUSP 30 ML CUP PO ONE (10:00)
[2017-09-03] MEDS ORDERED: DOCUSATE SODIUM 50 MG/SENNA 8.6 MG TAB PO ONE (10:00)
[2017-09-03 11:36] VITALS: BP 140/77; PULSE 104; RESP 18; TEMP 99; O2SAT 92
[2017-09-03] MEDS ORDERED: SOD PHOSPHATE/SOD BIPHOSPHATE (ADULT) ENEMA 133ML RECTAL ONE (15:15)
[2017-09-03 16:41] VITALS: BP 137/80; PULSE 105; RESP 17; TEMP 99; O2SAT 95
[2017-09-03] MEDS ORDERED: VITA500012 PO (17:25)
[2017-09-03] MEDS ORDERED: LEVA750T9 PO (17:25)
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
== END 2017-09-03 18:56 | disposition home or self-care (01) | DRG 480 ==
LOC: NEPE 06:28 → NEDA 08:08 → N06A 18:02
PROVIDERS: ADMIT Orthopaedic Surgery Orthopaedic Trauma; ATTEND Orthopaedic Surgery Orthopaedic Trauma
PROC: 0QSH06Z Reposition Left Tibia with Intramedullary Internal Fixation Device, Open Approach (ICD-10-PCS; 2017-08-29)
PROC: 0QS936Z Reposition Left Femoral Shaft with Intramedullary Internal Fixation Device, Percutaneous Approach (ICD-10-PCS; principal; 2017-08-29 14:15)
PROC: 30233N1 Transfusion of Nonautologous Red Blood Cells into Peripheral Vein, Percutaneous Approach (ICD-10-PCS; 2017-09-02)
DX: S72.392A Other fracture of shaft of left femur, initial encounter for closed fracture (principal); S82.252B Displaced comminuted fracture of shaft of left tibia, initial encounter for open fracture type I or II; J18.9 Pneumonia, unspecified organism; S82.452B Displaced comminuted fracture of shaft of left fibula, initial encounter for open fracture type I or II; Z68.41 Body mass index [BMI] 40.0-44.9, adult; D62 Acute posthemorrhagic anemia; E66.01 Morbid (severe) obesity due to excess calories; R40.2412 Glasgow coma scale score 13-15, at arrival to emergency department; G89.29 Other chronic pain; S43.101A Unspecified dislocation of right acromioclavicular joint, initial encounter; G89.11 Acute pain due to trauma; M54.2 Cervicalgia; M54.9 Dorsalgia, unspecified; K21.9 Gastro-esophageal reflux disease without esophagitis; E86.0 Dehydration; I10 Essential (primary) hypertension; N28.9 Disorder of kidney and ureter, unspecified; R09.02 Hypoxemia; R00.0 Tachycardia, unspecified; V89.2XXA Person injured in unspecified motor-vehicle accident, traffic, initial encounter; Y92.410 Unspecified street and highway as the place of occurrence of the external cause; Z79.891 Long term (current) use of opiate analgesic; Z87.820 Personal history of traumatic brain injury
CPT/HCPCS: 29505; 36430; 70450; 70486; 71045; 71260; 71275; 72125; 72170; 73020; 73551; 73552; 73564; 73590; 74177; 76000; 76937; 80048; 80053; 83036; 83735; 84100; 84155; 84439; 84443; 85014; 85018; 85025; 85027; 85610; 85730; 86850; 86900; 86901; 86920; 90471; 90715; 93970; 94150; 94618; 94640; 94664; 96374; 96375; 96376; 99291; C1713; G0390; J0131; J0330; J0690; J0696; J1170; J1580; J1650; J1885; J2250; J2270; J2370; J3010; J3475; J7120; L0150; P9016; Q9967